=== PATIENT | female | born 1990 | race Caucasian/White ===

== ENCOUNTER 2017-01-09 22:24 | Emergency (ER) | payer MEDICAID ==
[~2017-01-09] VITALS: Ht 162.6 cm; Wt 74.0 kg
[2017-01-09 22:31] VITALS: Ht 162.6 cm; Wt 74.0 kg
[2017-01-10] MEDS ORDERED: ACETAMINOPHEN 500 MG TAB PO STA (00:04)
--- NOTE | 2017-01-10 00:43 | ERD ---
ER Documentation Chief Complaint Date/Time DATE: 01/10/17 TIME: 00:37 Chief Complaint cough, sore throat x 3 days HPI 26-year-old female presents here in emergency department for complaints of cough , sore throat, headache, bodyaches on and off fever for 3 days, has been having on and off symptoms for the last 3 weeks. Patient is at 18 weeks. Patient coughing up greenish phlegm. Patient does not have any chest pain or palpitations. Patient has been having on and off wheezing. Patient's complains of sore throat, but has since become is worse upon swallowing. Patient denies any abdominal pain or vaginal bleeding. ROS All systems reviewed and are negative except as per history of present illness. Medications Home Meds Reported Medications [none] Unknown Strength No Conflict Check 01/10/17 Allergies Allergies: Coded Allergies: No Known Allergy (Unverified , 01/09/17) PMhx/Soc Medical and Surgical Hx: pt denies Medical Hx, pt denies Surgical Hx History of Surgery: No Anesthesia Reaction: No Hx Neurological Disorder: No Hx Respiratory Disorders: No Hx Cardiac Disorders: No Hx Psychiatric Problems: No Hx Miscellaneous Medical Probl: No Hx Alcohol Use: No Hx Substance Use: No Hx Tobacco Use: No Smoking Status: Never smoker FmHx Family History: diabetes Physical Exam Vitals Vital Signs Date Time Temp Pulse Resp B/P Pulse Ox O2 Delivery O2 Flow Rate FiO2 01/09/17 22:31 99.0 95 20 114/63 98 Physical Exam GENERAL: The patient is well developed and appropriate for usual state of health, in no apparent distress. HEENT: Atraumatic. Ears: Normal tympanic membrane, no erythema or bulging. No ear canal swelling. No ear discharge. Nose: normal nasal turbinates, no erythema or swelling. Normal nasal discharge. Throat: oropharynx clear. No tonsillar swelling or tonsillar exudates. No lymphadenopathy. CHEST: Clear to auscultation bilaterally. There are no rales, wheezes or rhonchi. HEART: Regular rate and rhythm. No murmurs, clicks, rubs or gallops. No S3 or S4. ABDOMEN: Soft, nontender and nondistended. Good bowel sounds. No rebound or guarding. No gross peritonitis. No gross organomegaly or masses. No Reinoso sign or McBurney point tenderness. BACK: No midline or flank tenderness. EXTREMITIES: Equal pulses bilaterally. There is no peripheral clubbing, cyanosis or edema. No focal swelling or erythema. Full range of motion. Grossly neurovascularly intact. NEURO: Alert and oriented. Cranial nerves 2-12 intact. Motor strength in all 4 extremities with 5/5 strength. Sensation grossly intact. Normal speech and gait. SKIN: There is no apparent rash or petechia. The skin is warm and dry. HEMATOLOGIC AND LYMPHATIC: There is no evidence of excessive bruising or lymphedema. No gross cervical, axillary, or inguinal lymphadenopathy. Results 24 hrs Current Medications Medications (Trade) Dose Ordered Sig/Chuy Route PRN Reason Start Time Stop Time Status Last Admin Dose Admin Acetaminophen (Tylenol Tab) 500 mg ONCE STAT PO 01/10/17 00:04 01/10/17 00:06 DC 01/10/17 00:25 Patient was given medication for pain here in emergency department, after treatment, patient verbalized feeling much better. Patient's pain is improved. Procedures/MDM Medical Decision Making: Patient symptoms are most likely consistent with acute bronchitis, can be viral, most like it can be also atypical infection considering patient has been having on and off cough for 3 weeks, patient also is a high-risk patient and she is . A trial antibiotics will be given at this time.. There is low suspicion for Pneumonia at this time since patients lungs sounds are clear, patient O2 saturation is normal and patient doesnt show any respiratory distress. Radiology exam is not indicated at this. There is low suspicion for other cardiopulmonary emergencies at this time such as CHF, Pulmonary Embolism, Pneumothorax, Aortic Aneurysm or any other cardiopulmonary emergencies at this time. There is low suspicion for sepsis. Patient appears well and is hemodynamically stable. Fever is controlled with medicines. Disposition: Home. Condition: Stable Prescriptions: Zyrtec, Tylenol, azithromycin, albuterol Instructions: Patient is advised to take medications as prescribed. Patient is advised to rest. Patient advised to increase fluid intake, do humidifier at home and if possible, do salt water gargles. Patient is advised that if symptoms are worse, shortness of breath, uncontrolled fever, stridor, vomiting, worst signs and symptoms to return to emergency department immediately. Otherwise, patient is advised to follow up with primary doctor in 5-7 days. Departure Diagnosis: Primary Impression: Acute bronchitis Bronchitis organism: unspecified organism Qualified Code: J20.9 - Acute bronchitis, unspecified organism Condition: Stable Patient Instructions: Bronchitis With Wheezing (Adult) Additional Instructions: Patient is advised to take medications as prescribed. Patient is advised to rest. Patient advised to increase fluid intake, do humidifier at home and if possible, do salt water gargles. Patient is advised that if symptoms are worse, shortness of breath, uncontrolled fever, stridor, vomiting, worst signs and symptoms to return to emergency department immediately. Otherwise, patient is advised to follow up with primary doctor in 5-7 days. DENISE SALAMANCA NP Jan 10, 2017 00:43
[2017-01-10] MEDS ORDERED: ALBU8.5H3 INH (00:45)
[2017-01-10] MEDS ORDERED: CETI10CA PO (00:45)
[2017-01-10] MEDS ORDERED: AZIT250T94 PO (00:45)
[2017-01-10] MEDS ORDERED: ACET500C5 PO (00:45)
== END 2017-01-10 01:07 | disposition home or self-care (01) ==
LOC: FTE 22:24
DX: O99.512 Diseases of the respiratory system complicating pregnancy, second trimester (principal); J20.9 Acute bronchitis, unspecified; Z3A.18 18 weeks gestation of pregnancy
CPT/HCPCS: Z7502; Z7610; 99284

== ENCOUNTER 2017-03-12 22:50 | Outpatient (CLI) | payer MEDICAID ==
[~2017-03-12 22:50] MED LIST: ACET500C5 PO; ALBU8.5H3 INH; AZIT250T94 PO; CETI10CA PO
[2017-03-13] MEDS ORDERED: PREN-93 PO (00:13)
--- NOTE | 2017-03-13 01:04 | TRIAGE ---
OB Triage Datetime Report Generated by CPN: 03/13/2017 01:04 Datetime: 03/12/2017 23:52 Assessment Type: Triage Maternal Assessment Level of Consciousness: Fully Conscious DTR's/Clonus: DTRs 2+; No Clonus Headache: Denies Blurred Vision: No Respiratory Effort: Unlabored Nausea/Vomiting: Denies RUQ Epigastric Pain: Denies Lower Extremities Edema: None Degree: None Upper Extremities Edema: None Degree: None Facial Edema: None Fall Risk Assessment History of Falling: (0) No Secondary Diagnosis: (0) No Ambulatory Aid: (0) Bedrest/Nurse Assist IV Therapy: (0) No Gait: (0) Normal/Bedrest/Immobile Mental Status: (0) Oriented to Own Ability Fall Score: 0 Fall Risk Score Definition: No Risk: No action required Datetime: 03/12/2017 23:40 Time of Arrival: 03/12/2017 22:45 EGA: 27.3 Arrived By: Wheelchair Arrived From: Home Chief Complaint: cough, cold, nasal congestion Movement: Decreased Contractions: Denies/Absent Rupture of Membranes: Denies Vaginal Bleeding: None Vaginal Discharge: Denies Recent Sexual Intercouse: Denies Abdominal Trauma: Not Applicable Patient Complaints: Cough; Runny Nose Time Provider Notified: 03/12/2017 23:30 Provider Notified: Katy Initial Plan: RODDY
--- NOTE | 2017-04-24 09:27 | QN ---
Documentation Comment 27w IUP coughing vomiting CARYL BEDOLLA MD April 24, 2017 09:27
== END 2017-03-13 00:35 | disposition home or self-care (01) ==
LOC: OBT 22:50 → L-D 22:50 → OBT 03-13 00:35
PROVIDERS: ATTEND Obstetrics & Gynecology
DX: O21.2 Late vomiting of pregnancy (principal); Z3A.27 27 weeks gestation of pregnancy
CPT/HCPCS: G0463

== ENCOUNTER 2018-04-15 18:52 | Emergency (ER) | END 2018-04-15 23:46 | disposition home or self-care (01) ==